=== PATIENT | female | born 1940 | race Caucasian/White ===

== ENCOUNTER 2019-10-12 05:25 | Inpatient (IN) | payer OTHER ==
[2019-10-12] VITALS (8 sets, daily range): BP systolic 137–164; BP diastolic 52–81
[~2019-10-12] VITALS: Ht 172.7 cm; Wt 62.7 kg
--- NOTE | ~2019-10-12 | EMS ---
[address] [address] EMS Patient Care Report Name: PRASAD CHEN Room #: REG NAVI Goddard#: [id number] Admission: 10/12/19 Attend Phys: Discharge: Date of : 42 Report #: [id number] THIS REPORT FOR: //name// Report Transmitted: 10/12/2019 07:07 EMS Care Summary [facility] MED-ACT Incident [id number] @ 10/12/2019 04:49 Incident Location [address] [place] [address] Patient PRASAD CHEN Female, 78 Years 1940 Patient Address [address] [place] [address] Patient History Alzheimer's,Gastro-Esophageal Reflux Disease (GERD), Patient Allergies No known allergies, Patient Medications Loperamide, Melatonin, Folic acid, Donepezil, Acetaminophen, Chief Complaint "she yelled and was shaking" Disposition Transported No Lights/[place] Dispatch Reason Convulsions/Seizure Transported To [facility] Narrative pt. was found lying supine in bed with LFD assessing pt. Pt. appears awake and tracking people and appears in no obvious distress, upon initial pt. assessment pt. has a strong regular radial pulse, pt's breathing is regular and non-labored and pt's skin is warm, dry and slightly pale. There does not appear [address] [address] EMS Patient Care Report Name: PRASAD CHEN Room #: REG Rupesh#: [id number] Admission: 10/12/19 Attend Phys: Discharge: Date of : 42 Report #: [id number] to be any trauma or noted injuries upon assessment. staff at [facility]-home intermediate state that pt. went to bed at 11pm last night, they did checks at 3am this morning and pt. was sleeping sound, staff states that just prior to 911 being called staff heard pt. scream from her bedroom, staff states that they came to check on pt. and found her "awake" and shaking full body only lasting approx. 1 minute , 911 was called, staff reports that pt. has Alzheimer's but is able to talk and converse and pt. is now not answering questions or talking which is unusual. staff states that pt. takes a melatonin at night to help her sleep but no other sleep aides, staff states that pt. has not been sick recently and no history of seizures or strokes. pt. is awake and smiles when talked to and is able to track EMS, pt. is unable to answer any questions made by EMS. pt. was assessed and vitals obtained including blood glucose by LFD prior to arrival, pt. was moved over to hospital bed via sheet drag with 3 personnel, pt. secured, cot to ambulance, IV established, upon IV stick pt. did scream for a short second in response to the pain, [place] stroke scale negative, EKG/12-lead obtained, pt. transported to [place], pt. remained pleasant during transport with no changes, arrived at hospital, pt. was moved over to hospital bed via sheet drag with 3 personnel, pt. care was transferred over to [place] [facility] nursing staff in room 9 without incident. Initial Vitals @05:13P: 82,R: 16,BP: 121/57,Pain: 0/10,GCS: 12,SpO2: 96,Revised Trauma: 11,FL Suspected: false @05:18P: 83,R: 16,BP: 127/67,GCS: 12,SpO2: 96,Revised Trauma: 11,FL Suspected: false @05:13P: 85,R: 16,GCS: 12,SpO2: 96,FL Suspected: false @PTAP: 79,R: 16,BP: 127/64,Pain: 0/10,GCS: 12,Glucose: 134,SpO2: 96,Revised Trauma: 11, Assessments @05:02MENTAL:Other,SKIN:Pale,HEENT:Eyes: No Abnormalities,LUNG SOUNDS:ABDOMEN:PELVIS//GI:No Abnormalities,EXTREMITIES:Left Arm: No Abnormalities,Right Arm: No Abnormalities,Left Leg: No Abnormalities,Right Leg: No Abnormalities,PULSE:Radial: 2+ Normal,NEURO: Impression Seizures Procedures @05:1312-Lead ECGResponse: UnchangedSucceeded@05:12Saline Lock 10cc (18 ga) Site: Antecubital-RightResponse: UnchangedSucceeded Timeline [address] [address] EMS Patient Care Report Name: GUSTAVOJANDORINDAEFFIECarlos Room #: KEITH Goddard#: [id number] Admission: 10/12/19 Attend Phys: Discharge: Date of : 42 Report #: [id number] 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,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,PULSE: 79,RR: 16 R,SPO2: 96 Ox,ETCO2: ,B,PAIN: 0,GCS: 12, 04:48,Call Received 04:48,Psap Call 04:49,Dispatched 04:51,En Route 04:58,On Scene 05:00,At Patient 05:12,Saline Lock 10cc 18 ga Site: Antecubital-Right,Response: UnchangedSucceeded, 05:13,BP: 121/57 M,PULSE: 82,RR: 16 R,SPO2: 96 Ox,ETCO2: ,BG: ,PAIN: 0,GCS: 12, 05:13,12-Lead ECG,Response: UnchangedSucceeded, 05:13,BP: / M,PULSE: 85,RR: 16 R,SPO2: 96 Ox,ETCO2: ,BG: ,PAIN: ,GCS: 12, 05:14,Depart Scene 05:18,BP: 127/67 M,PULSE: 83,RR: 16 R,SPO2: 96 Ox,ETCO2: ,BG: ,PAIN: ,GCS: 12, 05:29,At Destination 05:37,Call Closed Disclaimer v1.1 Copyright 2020 [employer] This EMS Care Summary contains data elements from the applicable legal record (which may be displayed differently). It is designed to provide pertinent information for the following purposes: continuity of care, clinical quality, and state data reporting. The complete legal record is available to ED staff and administrators of the receiving hospital in [employer]'s Patient Tracker. All data is provided "as is."
--- NOTE | ~2019-10-12 | EMS ---
[address] [address] EMS Patient Care Report Name: PRASAD CHEN Room #: REG NAVI Goddard#: [id number] Admission: 10/12/19 Attend Phys: Discharge: Date of : 42 Report #: [id number] THIS REPORT FOR: //name// Report Transmitted: 10/12/2019 06:40 EMS Care Summary [facility] MED-ACT Incident [id number] @ 10/12/2019 04:49 Incident Location [address] [place] [address] Patient PRASAD CHEN Female, 78 Years 1940 Patient Address [address] [place] [address] Patient History Alzheimer's,Gastro-Esophageal Reflux Disease (GERD), Patient Allergies No known allergies, Patient Medications Loperamide, Melatonin, Folic acid, Donepezil, Acetaminophen, Chief Complaint "she yelled and was shaking" Disposition Transported No Lights/[place] Dispatch Reason Convulsions/Seizure Transported To [facility] Narrative pt. was found lying supine in bed with LFD assessing pt. Pt. appears awake and tracking people and appears in no obvious distress, upon initial pt. assessment pt. has a strong regular radial pulse, pt's breathing is regular and non-labored and pt's skin is warm, dry and slightly pale. There does not appear [address] [address] EMS Patient Care Report Name: PRASAD CHEN Room #: REG Rupesh#: [id number] Admission: 10/12/19 Attend Phys: Discharge: Date of : 42 Report #: [id number] to be any trauma or noted injuries upon assessment. staff at in-home [facility]dc state that pt. went to bed at 11pm last night, they did checks at 3am this morning and pt. was sleeping sound, staff states that just prior to 911 being called staff heard pt. scream from her bedroom, staff states that they came to check on pt. and found her "awake" and shaking full body only lasting approx. 1 minute , 911 was called, staff reports that pt. has Alzheimer's but is able to talk and converse and pt. is now not answering questions or talking which is unusual. staff states that pt. takes a melatonin at night to help her sleep but no other sleep aides, staff states that pt. has not been sick recently and no history of seizures or strokes. pt. is awake and smiles when talked to and is able to track EMS, pt. is unable to answer any questions made by EMS. pt. was assessed and vitals obtained including blood glucose by LFD prior to arrival, pt. was moved over to hospital bed via sheet drag with 3 personnel, pt. secured, cot to ambulance, IV established, upon IV stick pt. did scream for a short second in response to the pain, [place] stroke scale negative, EKG/12-lead obtained, pt. transported to [place], pt. remained pleasant during transport with no changes, arrived at hospital, pt. was moved over to hospital bed via sheet drag with 3 personnel, pt. care was transferred over to [place] [facility] nursing staff in room 9 without incident. Initial Vitals @05:13P: 82,R: 16,BP: 121/57,Pain: 0/10,GCS: 12,SpO2: 96,Revised Trauma: 11,[place] Suspected: false @05:18P: 83,R: 16,BP: 127/67,GCS: 12,SpO2: 96,Revised Trauma: 11,VT Suspected: false @05:13P: 85,R: 16,GCS: 12,SpO2: 96,VT Suspected: false @PTAP: 79,R: 16,BP: 127/64,Pain: 0/10,GCS: 12,Glucose: 134,SpO2: 96,Revised Trauma: 11, Assessments @05:02MENTAL:Other,SKIN:Pale,HEENT:Eyes: No Abnormalities,LUNG SOUNDS:ABDOMEN:PELVIS//GI:No Abnormalities,EXTREMITIES:Left Arm: No Abnormalities,Right Arm: No Abnormalities,Left Leg: No Abnormalities,Right Leg: No Abnormalities,PULSE:Radial: 2+ Normal,NEURO: Impression Seizures Procedures @05:1312-Lead ECGResponse: UnchangedSucceeded@05:12Saline Lock 10cc (18 ga) Site: Antecubital-RightResponse: UnchangedSucceeded Timeline [address] [address] EMS Patient Care Report Name: GUSTAVOJANRYAN Room #: KEITH Goddard#: [id number] Admission: 10/12/19 Attend Phys: Discharge: Date of : 42 Report #: [id number] 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,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,PULSE: 79,RR: 16 R,SPO2: 96 Ox,ETCO2: ,B,PAIN: 0,GCS: 12, 04:48,Call Received 04:48,Psap Call 04:49,Dispatched 04:51,En Route 04:58,On Scene 05:00,At Patient 05:12,Saline Lock 10cc 18 ga Site: Antecubital-Right,Response: UnchangedSucceeded, 05:13,BP: 121/57 M,PULSE: 82,RR: 16 R,SPO2: 96 Ox,ETCO2: ,BG: ,PAIN: 0,GCS: 12, 05:13,12-Lead ECG,Response: UnchangedSucceeded, 05:13,BP: / M,PULSE: 85,RR: 16 R,SPO2: 96 Ox,ETCO2: ,BG: ,PAIN: ,GCS: 12, 05:14,Depart Scene 05:18,BP: 127/67 M,PULSE: 83,RR: 16 R,SPO2: 96 Ox,ETCO2: ,BG: ,PAIN: ,GCS: 12, 05:29,At Destination 05:37,Call Closed Disclaimer v1.1 Copyright 2020 [employer] This EMS Care Summary contains data elements from the applicable legal record (which may be displayed differently). It is designed to provide pertinent information for the following purposes: continuity of care, clinical quality, and state data reporting. The complete legal record is available to ED staff and administrators of the receiving hospital in [employer]'s Patient Tracker. All data is provided "as is."
[2019-10-12 06:16] LABS: BASOPHILS 1.1 % (0.0-2.0); EOSINOPHILS 2.2 % (0.0-3.0); HEMATOCRIT 41.4 % (37.0-47.0); HEMOGLOBIN 13.8 gm/dL (12.0-15.0); LYMPHOCYTES 49.6 % (24.0-44.0); MCH 31.1 pg (26.0-34.0); MCHC 33.4 g/dL (28.0-37.0); MCV 93.1 fL (80.0-100.0); MONOCYTES 8.7 % (1.0-8.0); POLYS 38.4 % (36.0-66.0); RBC 4.44 mil/uL (4.20-5.00); RDW 13.3 % (10.5-14.5); WBC 8.6 thou/uL (4.0-11.0)
[2019-10-12 06:25] LABS: CALCIUM 9.1 mg/dL (8.5-10.1); POTASSIUM 3.6 mmol/L (3.5-5.1)
[2019-10-12 06:34] LABS: PLATELET COUNT 223 thou/uL (150-400)
[2019-10-12 06:48] LABS: URINE BILIRUBIN NEGATIVE (Negative); URINE BLOOD 3+ (Negative); URINE CLARITY CLEAR; URINE COLOR YELLOW; URINE GLUCOSE-RANDOM* NEGATIVE (Negative); URINE KETONES NEGATIVE (Negative); URINE NITRITE-REFLEX NEGATIVE (Negative); URINE PROTEIN (DIPSTICK) NEGATIVE (Negative); URINE UROBILINOGEN 0.2 E.U./dl (0.2-1.0)
[2019-10-12 06:52] LABS: URINE LEUKOCYTES-REFLEX 1+ (Negative)
[2019-10-12 06:54] LABS: CASTS None Seen /LPF (None Seen); MUCUS 0-3 Light strn/LPF (None Seen); SQUAMOUS None Seen /LPF (0-3); URINE RBC >20 Many /HPF (0-2)
[2019-10-12 06:55] LABS: BACTERIA-REFLEX 1-9 Few /HPF (None Seen); CRYSTALS None Seen /LPF (None Seen); TRANSITIONAL EPITHEL CELL 0-3 Few /LPF (None Seen)
[2019-10-12 06:56] LABS: DIRECT BILIRUBIN 0.2 mg/dL (<0.1-0.2); TOTAL BILIRUBIN 0.6 mg/dL (<0.1-1.0); TOTAL PROTEIN 6.6 g/dL (6.4-8.2)
[2019-10-12] MEDS ORDERED: COQ-10100 MG PO (07:56)
[2019-10-12] MEDS ORDERED: FOLIC ACID1 MG PO (07:56)
[2019-10-12] MEDS ORDERED: NAMZARIC 28 MG1 EACH PO (07:56)
[2019-10-12] MEDS ORDERED: VITAMIN E1000 UNIT PO (07:57)
[2019-10-12] MEDS ORDERED: ARICEPT10 M1 PO (07:57)
[2019-10-12] MEDS ORDERED: MELATONIN3 M1 PO (07:58)
[2019-10-12] MEDS ORDERED: SENEXON-S 50-81 EACH PO (07:58)
[2019-10-12] MEDS ORDERED: VITAMIN B-121000 MC2 PO (07:58)
[2019-10-12] MEDS ORDERED: MAPAP325 MG PO (07:59)
[2019-10-12] MEDS ORDERED: GERI-LANTA LIQ355 M1 PO (08:00)
[2019-10-12] MEDS ORDERED: LOPERAMIDE2 MG PO (08:00)
[2019-10-12] MEDS ORDERED: SYSTANE 0.3-0.1 EACH OPHTHALMIC (08:01)
[2019-10-12 11:35] LABS: CHOLESTEROL 242 mg/dL (<200); HDL CHOLESTEROL 49 mg/dL (>40); LDL CHOLESTEROL 156 mg/dL (<100); TC:HDL 4.9 Ratio (Not establshd); TRIGLYCERIDE 189 mg/dL (<150); VLDL 38 mg/dL (<40)
--- NOTE | 2019-10-12 15:45 | EKG ---
[facility] [place] [address] ELECTROCARDIOGRAM REPORT Name: PRASAD CHEN Room #: 351- ADM IN M.R.#: [id number] Admission: 10/12/19 Attend Phys: Scar More MD Discharge: Date of : 42 Report #: [id number] THIS REPORT FOR: cc: Mary Nayak MD, Joy E. MD Lundgren,Oj Dowell MD [facility] ~ THIS REPORT FOR: //name// [facility] ED Test Date: 2019-10-12 Test Time: 06:19:32 Pat Name: PRASAD CHEN Department: Room: [facility] Gender: F Technician Automated Equipment: fausto peterson rn : 1940 Requested By: Akilah Daniels Order Number: [id number] MD: Oj Montoya Measurements Intervals [place] Rate: 86 P: 59 WV: 157 QRS: 29 QRSD: 110 T: 33 QT: 382 QTc: 457 Interpretive Statements Sinus rhythm Borderline T abnormalities, anterior leads No previous ECG available for comparison Electronically Signed On 10-12-2019 15:44:13 CDT by Oj Montoya [email or web address] <ELECTRONICALLY SIGNED> By: Oj Montoya MD, [facility] 10/12/19 1544 0619 0619 Oj Montoya MD, [facility] /EPI
[2019-10-13] VITALS: BP 131/60
[2019-10-13 03:45] VITALS: BP 125/53
[2019-10-13 06:15] LABS: ABSOLUTE NEUTROPHILS 3.3 thou/uL (1.4-8.2); EOSINOPHILS 1.7 % (0.0-3.0); HEMATOCRIT 40.4 % (37.0-47.0); HEMOGLOBIN 13.6 gm/dL (12.0-15.0); LYMPHOCYTES 30.7 % (24.0-44.0); MCHC 33.5 g/dL (28.0-37.0); MCV 92.3 fL (80.0-100.0); MONOCYTES 7.3 % (1.0-8.0); PLATELET COUNT 240 thou/uL (150-400); POLYS 59.3 % (36.0-66.0); RBC 4.38 mil/uL (4.20-5.00); RDW 13.5 % (10.5-14.5); WBC 5.5 thou/uL (4.0-11.0)
[2019-10-13 06:32] LABS: CALCIUM 8.8 mg/dL (8.5-10.1); CREATININE 0.8 mg/dL (0.6-1.0); MAGNESIUM 1.9 mg/dL (1.8-2.4); POTASSIUM 3.5 mmol/L (3.5-5.1)
[2019-10-13 07:51] VITALS: BP 157/74
[2019-10-13 15:51] VITALS: BP 153/103
[2019-10-13 20:00] VITALS: BP 146/81
[2019-10-14 05:00] VITALS: BP 152/62
[2019-10-14 08:30] VITALS: BP 155/79
[2019-10-14 19:35] VITALS: BP 143/63
[2019-10-15 03:58] VITALS: BP 144/86
[2019-10-15 06:42] LABS: HEMATOCRIT 37.9 % (37.0-47.0); HEMOGLOBIN 13.1 gm/dL (12.0-15.0); MCH 31.7 pg (26.0-34.0); MCHC 34.5 g/dL (28.0-37.0); MCV 92.1 fL (80.0-100.0); RBC 4.12 mil/uL (4.20-5.00); RDW 13.2 % (10.5-14.5); WBC 5.3 thou/uL (4.0-11.0)
[2019-10-15 06:55] LABS: CALCIUM 8.7 mg/dL (8.5-10.1); CREATININE 0.7 mg/dL (0.6-1.0); MAGNESIUM 1.8 mg/dL (1.8-2.4); POTASSIUM 3.2 mmol/L (3.5-5.1)
[2019-10-15 08:24] VITALS: BP 156/68
[2019-10-15 11:29] VITALS: BP 156/68
[2019-10-15 15:38] VITALS: BP 138/76
--- NOTE | 2019-10-15 16:47 | EEG ---
[facility] [place] [address] ELECTROENCEPHALOGRAM Name: PRASAD CHEN Room #: 351-P ADM IN M.R.#: [id number] Admission: 10/12/19 Attend Phys: Scar More MD Discharge: Date of : 42 Report #: [id number] THIS REPORT FOR: //name// CC: Mary More DATE OF SERVICE: 10/12/2019 This patient is being evaluated for altered mental status. EEG was done by placing the electrode by standard 10-20 system of electrode placement. Both referential and sequential montages were used for recording. Background activity in this patient's EEG is about 7 Hz and 10 microvolt. This is a poorly formed background activity. Photic stimulation is unremarkable. The patient appeared to be drowsy during part of the EEG and that is associated with bilateral slowing and vertex sharp waves. Photic stimulation is unremarkable. IMPRESSION: This is an abnormal electroencephalogram because it is low voltage, disorganized and poorly formed. That is a nonspecific abnormality, which can occur with encephalopathy, effect of psychotropic medication, dementia, etc. <ELECTRONICALLY SIGNED> By: Sourav Millard MD 10/15/19 1647 1409 1418 Sourav Millard MD /nt
[2019-10-15 20:11] VITALS: BP 154/78
[2019-10-16 03:40] VITALS: BP 152/82
[2019-10-16 07:34] VITALS: BP 118/91
[2019-10-16] MEDS ORDERED: AUGMENTIN 875-1 EACH PO (14:04)
[2019-10-16 15:15] VITALS: BP 137/72
== END 2019-10-16 16:48 | disposition home health service (06) | DRG 193 ==
LOC: ER 05:25 → EROBS 08:13 → 3W 08:13
PROVIDERS: Emergency Medicine; Emergency Medicine Emergency Medical Services; Internal Medicine; Nurse Practitioner; ADMIT Internal Medicine
DX: J18.9 Pneumonia, unspecified organism (principal); G92 Toxic encephalopathy; N39.0 Urinary tract infection, site not specified; J98.11 Atelectasis; F03.90 Unspecified dementia, unspecified severity, without behavioral disturbance, psychotic disturbance, mood disturbance, and anxiety; Z66 Do not resuscitate; D72.820 Lymphocytosis (symptomatic); K59.00 Constipation, unspecified; K21.9 Gastro-esophageal reflux disease without esophagitis; B96.20 Unspecified Escherichia coli [E. coli] as the cause of diseases classified elsewhere; Z79.899 Other long term (current) drug therapy
CPT/HCPCS: 10879